=== PATIENT | male | born 1995 | race Two or more races ===

== ENCOUNTER 2020-04-08 01:36 | Emergency (ER) | payer OTHER ==
[~2020-04-08] VITALS: Ht 180.3 cm; Wt 93.0 kg
--- NOTE | 2020-04-08 01:49 | NUR ---
PATIENT CAME TO THE ER BED 11 C/O HEROIN USE, PATIENT STATES, "I OVER DID MY HEROIN". PARAMEDICS GAVE NARCAN TO PATIENT. PATIENT IS AAOX4. NO SOB. BREATHING EVENLY AND UNLABORED ON ROOM AIR AT 99%. GIVEN 2L FOR COMFORT PER MD'S ORDER. PATIENT IS CONNECTED TO THE MONITOR.
--- NOTE | 2020-04-08 01:54 | NUR ---
COVID SWAB COLLECTED, CALLED LAB FOR PHOTOGRAPHS CURATOR
--- NOTE | 2020-04-08 05:49 | NUR ---
Patient discharged to home in stable condition. Written and verbal after care instructions given. Patient verbalizes understanding of instruction.
--- NOTE | 2020-04-08 05:49 | NUR ---
Patient provided with instructions and prescriptions.
[2020-04-08 05:50] VITALS: BP 121/72
== END 2020-04-08 05:51 | disposition home or self-care (01) ==
LOC: ER 01:41
DX: T40.1X1A Poisoning by heroin, accidental (unintentional), initial encounter (principal); R00.0 Tachycardia, unspecified; Y92.414 Local residential or business street as the place of occurrence of the external cause; F17.210 Nicotine dependence, cigarettes, uncomplicated; Z20.828 Contact with and (suspected) exposure to other viral communicable diseases
CPT/HCPCS: 71045; 87426; 93005; 99285; 99406; C9803